=== PATIENT | male | born 2000 | race American Indian/Alaskan Native ===

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

== ENCOUNTER 2022-02-23 02:08 | Emergency (ER) | payer MEDICAID ==
[2022-02-23] MEDS ORDERED: Sodium Chloride 0.9% 1,000 ML IV ONE (02:25)
[2022-02-23] MEDS ORDERED: Ondansetron 4 MG/2 ML SDV IVPUSH ONE (02:27)
[2022-02-23] MEDS ORDERED: fentaNYL 100 MCG/2 ML SDV IVPUSH ONE (02:28)
[2022-02-23 03:04] LABS: CHLORIDE,CL 106 mmol/L (98-107); SODIUM,NA 140 mmol/L (136-145)
[2022-02-23 03:11] LABS: ESTIMATED GFR > 60
[2022-02-23] MEDS ORDERED: Iopamidol 612 MG/ML 100 ML Bottle IVPUSH ONE (03:19)
[2022-02-23] MEDS ORDERED: Famotidine 20 MG/2 ML SDV IVPUSH ONE (04:37)
[2022-02-23 04:38] LABS: AMPHETAMINES,URINE NEGATIVE (NEGATIVE); BARBITURATES,URINE NEGATIVE (NEGATIVE); BENZODIAZEPINE,URINE NEGATIVE (NEGATIVE); MDMA (ECSTASY), URINE NEGATIVE (NEGATIVE); METHADONE,URINE NEGATIVE (NEGATIVE); METHAMPHETAMINES,URINE NEGATIVE (NEGATIVE); OPIATES,URINE NEGATIVE (NEGATIVE); OXYCODONE,URINE NEGATIVE (NEGATIVE); PHENCYCLIDINE,URINE NEGATIVE (NEGATIVE); TCA,URINE NEGATIVE (NEGATIVE)
[2022-02-23 06:05] VITALS: BP 138/83; PULSE 68
== END 2022-02-23 06:47 | disposition home or self-care (01) ==
LOC: DL.ED 02:08
DX: R10.11 Right upper quadrant pain (principal); F17.210 Nicotine dependence, cigarettes, uncomplicated; Z79.899 Other long term (current) drug therapy; Z88.6 Allergy status to analgesic agent; Z91.030 Bee allergy status
CPT/HCPCS: 36415; 74177; 80053; 80305-QW; 81003; 82150; 83605; 83690; 85025; 96374; 96375; 99283; 99284-25; J2405; J3010; J3490; J7030; Q9967

== ENCOUNTER 2022-02-27 19:58 | Emergency (ER) | payer MEDICAID ==
[2022-02-27] MEDS ORDERED: fentaNYL 100 MCG/2 ML SDV IVPUSH ONE (20:06)
[2022-02-27] MEDS ORDERED: Sodium Chloride 0.9% 10 ML Syringe FLUSH PRN (20:06)
[2022-02-27] MEDS ORDERED: Sodium Chloride 0.9% 1,000 ML IV ONE (20:06)
[2022-02-27] MEDS ORDERED: LORazepam 2 MG/ML SDV IM ONE (20:11)
[2022-02-27] MEDS ORDERED: Flumazenil 0.1 MG/ML 5 ML MDV IVPUSH PRN (20:11)
[2022-02-27] MEDS ORDERED: Famotidine 20 MG/2 ML SDV IVPUSH ONE (20:28)
[2022-02-27] MEDS ORDERED: Iopamidol 612 MG/ML 100 ML Bottle IVPUSH ONE (20:49)
[2022-02-27 20:50] LABS: ANION GAP 13.3 mEq/L (7-13)
[2022-02-27 20:57] LABS: PTT,PARTIAL THROMBOPLSTIN TIME 24.4 SEC (22.0-34.0)
[2022-02-27 23:10] VITALS: BP 129/81; PULSE 80
[2022-02-28 00:02] LABS: AMPHETAMINES,URINE NEGATIVE (NEGATIVE); BARBITURATES,URINE NEGATIVE (NEGATIVE); BENZODIAZEPINE,URINE NEGATIVE (NEGATIVE); MDMA (ECSTASY), URINE NEGATIVE (NEGATIVE); METHADONE,URINE NEGATIVE (NEGATIVE); METHAMPHETAMINES,URINE NEGATIVE (NEGATIVE); OPIATES,URINE NEGATIVE (NEGATIVE); OXYCODONE,URINE NEGATIVE (NEGATIVE); PHENCYCLIDINE,URINE NEGATIVE (NEGATIVE); TCA,URINE NEGATIVE (NEGATIVE)
== END 2022-02-27 23:08 | disposition home or self-care (01) ==
LOC: DL.ED 19:58
DX: K82.8 Other specified diseases of gallbladder (principal); F17.210 Nicotine dependence, cigarettes, uncomplicated; Z91.030 Bee allergy status; Z88.8 Allergy status to other drugs, medicaments and biological substances
CPT/HCPCS: 36415; 74177; 80053; 80305; 81003; 83605; 83690; 85025; 85610; 85730; 87040; 96361; 96372; 96374; 96375; 99284; J2060; J3010; J3490; J7030; Q9967